=== PATIENT | male | born 1955 | race Caucasian/White ===

== ENCOUNTER → 2019-07-18 10:17 | Outpatient (CLI) | payer OTHER, SELFPAY ==
--- NOTE | ~2019-07-18 | MR_ITS ---
EXAMINATION: MR knee RT wo con DATE: 07/18/2019 11:07 INDICATION: Right knee pain. TECHNIQUE: Magnetic resonance imaging (MRI) of the right knee was performed without intravenous contr ast. Sequences included axial PD-weighted FS FSE, coronal PD-weighted FSE and PD-weighted FS FSE, sag ittal PD-weighted FSE, and sagittal T2-weighted FS FSE. COMPARISON: Right knee radiographs 05/17/2018 FINDINGS: Medial compartment: There is a complex tear of body and posterior horn of medial meniscus. There is shallow partial-thick ness cartilage loss of tibial condyle. There is partial-thickness cartilage loss of femoral condyle, deep at the central and medial articular surface with mild subchondral edema-like marrow signal inten sity. Marginal osteophytes are noted. Lateral compartment: Lateral meniscus is normal. There is cartilage surface irregularity of tibial condyle. There is shall ow partial-thickness cartilage loss of femoral condyle, worst at the central articular surface. Amy nal osteophytes are noted. Patellofemoral compartment: There is deep partial thickness cartilage loss of patellar medial facet and median ridge and shallow partial-thickness cartilage loss of patellar lateral facet with mild subchondral edema-like marrow si gnal intensity. There is shallow partial-thickness cartilage loss of central trochlea and deep partia l thickness cartilage loss of medial trochlea. Osteophytes are noted. Ligaments and tendons: Anterior and posterior cruciate ligaments are normal. There are changes of prior sprains of medial co llateral ligament and fibular collateral ligament characterized by increased signal intensity proxima lly. Edema around medial collateral ligament may be from an acute low-grade sprain or from the medial meniscal tear. There is severe patellar tendinopathy laterally. Fluid: There is a small knee joint effusion. There is mild prepatellar and superficial infrapatellar bursiti s. IMPRESSION: 1. Moderate chondrosis of medial and patellofemoral compartments and mild chondrosis of lateral katya rtment. 2. Tear of medial meniscus. 3. Edema around medial collateral ligament, which may be from an acute low-grade sprain or from the a djacent medial meniscal tear. 4. Small knee joint effusion. 5. Severe patellar tendinopathy. Reviewed, dictated and finalized at location A. IMPRESSION: 1. Moderate chondrosis of medial and patellofemoral compartments and mild chond rosis of lateral compartment. 2. Tear of medial meniscus. 3. Edema around medial collateral ligament, which may be from an acute low-grad e sprain or from the adjacent medial meniscal tear. 4. Small knee joint effusion. 5. Severe patellar tendinopathy.
== END ==
PROVIDERS: PCP Internal Medicine; Visit Provider Internal Medicine
DX: M25.561 Pain in right knee (principal); M22.2X1 Patellofemoral disorders, right knee; S83.241A Other tear of medial meniscus, current injury, right knee, initial encounter; M79.89 Other specified soft tissue disorders; M25.461 Effusion, right knee; M76.51 Patellar tendinitis, right knee
CPT/HCPCS: 73721

== ENCOUNTER 2019-09-28 11:29 | Outpatient (CLI) | payer OTHER, SELFPAY ==
--- NOTE | 2019-09-28 11:32 | ECG_ITS ---
Measurements Intervals [place] Rate: 73 P: 32 TN: 188 QRS: 7 QRSD: 95 T: 18 QT: 381 QTc: 421 Interpretive Statements SINUS RHYTHM DELAYED PRECORDIAL R/S TRANSITION VOLTAGE CRITERIA FOR LVH BORDERLINE ECG Electronically Signed On 09-28-2019 12:46:46 CDT by Marco A Husain D.O.
[2019-09-28 12:12] LABS: Blood Urea Nitrogen 16 mg/dL (9-20); Calcium 9.2 mg/dL (8.4-10.2); Carbon Dioxide 28 mmol/L (22-30); Chloride 104 mmol/L (98-107); Estimated Glomerular Filt Rate > 60; Glucose 120 mg/dL (75-110); Sodium 138 mmol/L (137-145)
== END 2019-09-28 11:30 | disposition home or self-care (01) ==
LOC: ANHSURGERY 11:32
PROVIDERS: Anesthesiology; PCP Internal Medicine; Visit Provider Orthopaedic Surgery
DX: Z01.818 Encounter for other preprocedural examination (principal); Z51.81 Encounter for therapeutic drug level monitoring; I10 Essential (primary) hypertension
CPT/HCPCS: 36415; 80048; 93005

== ENCOUNTER 2019-10-03 00:10 | Outpatient (CLI) | payer OTHER, SELFPAY ==
[2019-10-03 18:54] LABS: SARS-CoV-2 RNA PCR Negative
== END 2019-10-03 00:11 | disposition home or self-care (01) ==
LOC: ANHCOVIDDT 00:10
PROVIDERS: PCP Internal Medicine; Visit Provider Orthopaedic Surgery
DX: Z01.818 Encounter for other preprocedural examination (principal); Z11.59 Encounter for screening for other viral diseases
CPT/HCPCS: 87635; C9803; U0003

== ENCOUNTER 2019-10-05 02:26 | Day surgery (SDC) | payer OTHER, SELFPAY ==
[2019-09-26 15:02] VITALS: BMI 36.0
--- NOTE | 2019-10-04 14:14 | P.PNAN_ITS ---
Anes - Initial Pre Proc Eval Procedure: Operation Date: 10/05/19 09:00 Proposed Procedures p Right Knee Arthroscopy, Proceed As Indicated - Toni Kidd MD Date/Time: 10/04/19 14:14 Surgeon: Toni Kidd MD Pre Op Diagnosis: Right Medial Meniscus Tear Right Knee Patient Data Age: 63 Gender: M Height: 1.7 m Weight: 104.33 kg Allergies Allergy/AdvReac Type Severity Reaction Status Date / Time No Known Allergies Allergy Verified 10/05/19 08:06 Home Medications Medication Instructions Recorded Confirmed Type chlorhexidine gluconate 4 % 1 applic TOPICAL ONCE #237 ml 09/26/19 09/26/19 Rx topical liquid hydrochlorothiazide 25 mg PO DAILY 09/26/19 10/05/19 History lisinopril 10 mg PO DAILY 09/26/19 10/05/19 History metoprolol succinate 25 mg PO DAILY 09/26/19 10/05/19 History potassium chloride 20 meq PO DAILY 09/26/19 10/05/19 History rosuvastatin 10 mg PO DAILY 09/26/19 10/05/19 History ECG: Date of Service: 09/28/19 Procedure(s): CA 12 lead EKG Accession Number(s): [id number] cc: ~ Measurements Intervals [place] Rate: 73 P: 32 ME: 188 QRS: 7 QRSD: 95 T: 18 QT: 381 QTc: 421 Interpretive Statements SINUS RHYTHM DELAYED PRECORDIAL R/S TRANSITION VOLTAGE CRITERIA FOR LVH BORDERLINE ECG Electronically Signed On 09-28-2019 12:46:46 CDT by Marco A Husain D.O. Dictated By: Marco A Husain DO 09/28/19 1204 Patient hx anesthesia problems: none Family hx anesthesia problems: none PMFSH Past Medical History Medical History (Updated 10/05/19 @ 08:48 by Je Frost MD) Aneurysm of abdominal aorta ASCEDING and abdominal AORTIC ANEURYSM, monitored w/ annual CT Arthritis HTN (hypertension) Hypercholesterolemia Obesity JESSICA (obstructive sleep apnea) USES CPAP Social History Social History Smoking status: Former smoker Smoking end date: 04/06/03 Alcohol intake: current Anes - Eval Final PreProcedure Day of Procedure 10/04/19 14:14 Patient weight: obese Heart: regular rate and rhythm Lungs: clear to auscultation and normal air movement Airway: Mallampati scale class II Neurological: alert and oriented Last oral intake: >/= 8 hours ASA classification: III Emergent: no Anesthetic plan: proceed Anesthesia type and monitoring: general LMA Informed Consent: The patient's anesthetic plan and its attendant risks and benefits were discussed with the patient/family/POA. Questions were solicited and answers provided to the satisfaction of the patient/family/POA.
[2019-10-05] VITALS (8 sets, daily range): BP systolic 112–168; BP diastolic 62–94; PULSE 66–81; RESP 12–20; TEMP 36.5–36.7; O2SAT 94–98
--- NOTE | 2019-10-05 07:36 | WPDHPUPDATE1 ---
History and Physical Update Update Date/Time: 10/05/19 07:36 History and Physical has been reviewed, including an updated exam of the patient. There are NO changes in the patient's condition. Risks, benefits, and alternatives have been discussed and questions answered. Patient agrees to proceed with procedure.
[2019-10-05] MEDS: LACTATED RINGERS 1,000 ML 30 ML IV CONT (08:00)
[2019-10-05] MEDS: CELECOXIB 200 MG CAPSULE PO (08:00)
[2019-10-05] MEDS: ceFAZolin 2 GM/D5W 50 ML 2 GM/50 ML BAG IVPB (09:03)
--- NOTE | 2019-10-05 11:12 | PM.OP ---
Procedure Note - Brief Procedure Note - Brief Date of procedure: 10/05/19 Pre-op diagnosis: Right Medial Meniscus Tear Right Knee Post-op diagnosis: same Procedure performed: RIGHT KNEE SCOPE Anesthesia: GLMA Surgeon: Toni Kidd MD Estimated blood loss (mL): 10 Complications: No immediate complications Condition: stable Disposition: PACU
--- NOTE | 2019-10-05 13:03 | OP_ITS ---
DATE OF PROCEDURE: 10/05/2019 PREOPERATIVE DIAGNOSIS: Right knee medial meniscus tear. POSTOPERATIVE DIAGNOSIS: Right knee medial meniscus tear with synovitis and chondromalacia. PROCEDURE PERFORMED: Right knee arthroscopy with partial medial meniscectomy and major synovectomy. ANESTHESIA: General. COMPLICATIONS: None. INDICATIONS: This is a 63-year-old gentleman, who came in the office complaining of right knee pain and effusion. He was diagnosed with a medial meniscus tear and was complex in nature. He was also diagnosed with some mild arthritis. He was indicated for a right knee arthroscopy. DESCRIPTION OF PROCEDURE: The patient was taken to the operating room in stable condition and placed in the supine position. General anesthesia was induced and then the right lower extremity was prepped and draped sterilely from the toes to the thigh. Superomedial portal was used for an outflow cannula. Inferolateral portal was used for an inflow cannula. The camera was introduced. There was grade 3 chondromalacia of the patella and grade 2 chondromalacia to the trochlea. There was large amounts of synovitis in the superior medial pouch region and also in the Hoffa's fat pad region. The medial compartment then was entered. There was a large complex tear of the medial meniscus. A medial portal was established. Biter and shaver were introduced at different times and the meniscus tear was resected down to a smooth base. Also, the medial femoral condyle and the medial plateau underwent limited chondroplasty. Once that was performed, then the ACL was identified and it was intact. Lateral compartment was intact. There was an area of approximately about 3 cm and had a chondral defect that underwent chondroplasty. Until there was a much smoother area, there was no tear to the lateral meniscus. Next, the patellofemoral joint underwent chondroplasty. The Hoffa synovium was resected and the medial compartment synovium also was resected. The lateral compartment synovitis was resected due to impingement on the lateral joint space. The knee joint was irrigated thoroughly and then the instruments were removed and then the wounds were approximated with 4-0 nylon suture. Sterile dressing applied. The patient was extubated. Marina I [place]: [facility]
== END 2019-10-05 13:09 | disposition home or self-care (01) ==
PROVIDERS: PCP Internal Medicine; Visit Provider Orthopaedic Surgery
PROC: (CPT 29870; principal; 2019-10-05 09:00)
DX: M23.331 Other meniscus derangements, other medial meniscus, right knee (principal); M94.261 Chondromalacia, right knee; M65.861 Other synovitis and tenosynovitis, right lower leg; I10 Essential (primary) hypertension; E78.00 Pure hypercholesterolemia, unspecified; G47.33 Obstructive sleep apnea (adult) (pediatric); I71.4 Abdominal aortic aneurysm, without rupture; E66.9 Obesity, unspecified; Z68.36 Body mass index [BMI] 36.0-36.9, adult; Z87.891 Personal history of nicotine dependence
CPT/HCPCS: 29881; 29876; A9270; J0690; J2250; J2405; J2704; J3010; J7120

== ENCOUNTER 2022-02-10 10:30 | Outpatient (RCR) | payer MEDICARE, SELFPAY ==
[2022-01-24 08:58] VITALS: BP_SYST 120
--- NOTE | 2022-01-24 12:56 | PTOPEVAL1 ---
Assessment and note entered by Dania Rosado, PT Evaluation Information Assessment Status Evaluation Diagnosis right shoulder pain Onset 10/2021 Subjective Information Pt reports was moving a water heater and felt a pop. It doesn't hurt much but doesn't have the mobility he had prior to this instance. Can't lift like he did prior Reported Pain Level Pain Score Mild Pain: Gigi Spann Additional Pain Score Comments Reports shoulder just stops when trying to lift Assessment PT Clinical Summary Pt presents with right shoulder pain and disuse after probable injury in 10/2021 while moving water heater. Pt reports minimal discomfort however notes significant loss of range and strength in right shoulder. Evaluation shows decreased Active and Passive range of motion with muscular end- feels. Also demos decreased strength globally in shoulder w/ positive special testing suggestive of partial rotator cuff tear likely supraspinatus and possibly bicep involvement without labral involvement. Scapular mobility is also decreased effecting scapulohumeral rhythm. Thus pt will greatly benefit from physical therapy in order to address above deficits and allow improved high level activity such as shoulder use in rec center. Plan of Care Interventions Electrical Stimulation,Hot Pack/Cold Pack,Manual Therapy,Neuro Re-education,Patient/Caregiver Educati,Therapeutic Activities,Therapeutic Exercise,Ultrasound PT Services Indicated Yes Treatment Frequency and 2x weekly x 4 weeks Duration These treatments will address the objective and functional deficits as defined above. The patient will be advanced safely and appropriately in order for the patient to progress towards his/her prior level of function. Additional exercises will be introduced and as well as a comprehensive home exercise program upon discharge, if needed, ?to ensure carryover of functional gains achieved in the clinic. This treatment plan has been reviewed and agreement upon by the patient.
--- NOTE | 2022-02-10 11:14 | PTOPDC ---
Assessment and note entered by Dania Rosado, PT Evaluation Information Assessment Status Discharge Diagnosis right shoulder pain Onset 10/2021 Subjective Information Pt reports was unable to do anything at the Rec center, but with knowledge gained during therapy feels confident in returning to lifting weights. Reported Pain Level Pain Score 0: Self Report Assessment PT Clinical Summary Pt glenna's significantly improved Active ROM and Passive ROM of right shoulder, and reports feeling confident in returning to working out at Rec. center. Reports feeling 100% back to normal. Was afraid of going back to working out but now feels that he can without injury. Pt has met his functional and pain goals, still glenna's mild deficit in active abduction however this is not limiting his ability or causing impingement symptoms. Thus pt is being discharged from therapy and has been educated on return to Rec. Center.
== END 2022-02-14 08:53 | disposition home or self-care (01) ==
LOC: ANHHIPT 10:30
PROVIDERS: PCP Family Medicine; Visit Provider Family Medicine
DX: M25.511 Pain in right shoulder (principal)
CPT/HCPCS: 97110; 97140; 97161

== ENCOUNTER 2024-12-02 01:22 | Day surgery (SDC) | payer MEDICARE, SELFPAY ==
[2024-11-24 15:03] VITALS: BMI 35.3
--- NOTE | 2024-11-24 15:23 | PC.NURSE ---
Spoke with patient regarding medication _plavix_. Patient verbalizes understanding that the last dose is to be taken on 11/27/2024 and the Endoscopist will instruct them when to restart after the procedure.
--- OUTSIDE RECORDS SUMMARY | 2024-12-02 01:27 | XMS_ITS | Clinical Summary ---
Author Organization [facility] Address [facility] [place] [address] Care Team Providers Care Specialty Trimmer Name Role Phone Kashif Bruce MD Primary Care Provider [phone] Allergies No known active allergies Medications traMADol 50 MG tablet Take 50 mg by mouth 3 (three) times daily as needed. 1 Active rosuvastatin 10 MG tablet Take 1 tablet by mouth daily. 5 Active potassium chloride CR (KLOR-CON M20) 20 MEQ tablet Take 1 tablet by mouth. 6 Active metoprolol succinate ER 25 MG 24 hr tablet Take 1 tablet by mouth daily. 6 Active Na sulfate-K sulfate-Mg sulfate (SUPREP BOWEL PREP KIT) 17.5-3.13-1.6 GM/177ML SolutionIndicat ions:Screening for colon cancer,Personal history of colonic polyps Take 177 mLs by mouth every 12 (twelve) hours. Take as directed by instruction sheet. 354 mL 1 Active hydroCHLOROthia zide 25 MG tablet Take 25 mg by mouth every morning. Active lisinopril 10 MG tablet Take 10 mg by mouth daily. Active Active Problems Problem Noted Date Diagnosed Date Screening for colon cancer 01/09/2021 Overview (01/09/2021): Added automatically from request for surgery [id number] Family history of colon cancer in mother 021 Overview (01/09/2021): Added automatically from request for surgery [id number] Anal fissure 06/17/2016 Sleep apnea 04/03/2016 Ascending aortic aneurysm 03/19/2016 Aortic aneurysm 11/28/2014 History of colon polyps 09/25/2014 BMI 36.0-36.9,adult 03/23/2014 Generalized osteoarthritis of multiple sites Dysfunction of both eustachian tubes 12/11/2013 Hyperlipidemia 04/13/2013 Immunizations Immunization Administration Dates Next Due Td (Tenivac) preservative free 09/26/2013 Tdap (Generic) 03/18/2016 Family History Medical History Relation Comments Colon Cancer Mother Relation Status Comments Mother Social History Tobacco Use Types Packs/Day Years Used Date Smoking Tobacco: Former Smokeless Tobacco: Never Alcohol Use Standard Drinks/Week Comments Yes 0 (1 standard drink = 0.6 oz pur e alcohol) occ Sex and Gender Information Value Date Recorded Sex Assigned at Not on file Legal Sex Male 6:01 PM CDT Gender Identity Not on file Sexual Orientation Not on file Last Filed Vital Signs Vital Sign Reading Time Taken Comments Blood Pressure 128/80 08/15/2021 4:30 AM CDT Pulse 60 08/15/2021 4:30 AM CDT Temperature 36.6 C (97.9 F) 08/15/2021 12:30 AM CDT Respiratory Rate 13 08/15/2021 4:30 AM CDT Oxygen Saturation 90% 08/15/2021 4:30 AM CDT Inhaled Oxygen Concentration - - Weight 102.1 kg (225 lb) 08/15/2021 12:30 AM CDT Height 170.2 cm (5' 7) 08/15/2021 12:30 AM CDT Body Mass Index 35.24 08/15/2021 12:30 AM CDT Plan of Treatment Health Maintenance Due Date Last Done Comments Hepatitis C 11/29/1973 Pneumococcal Vaccine: 50+ Years (1 of 1 - PCV) 11/29/2005 Zoster Vaccines (1 of 2) 11/29/2005 Annual Medicare Wellness Visit 11/29/2020 COVID-19 Vaccine (2 - 2023-2 5 season) 2023 06/12/2020 DTaP, Tdap and Td Vaccines ( 2 - Td or Tdap) 03/18/2026 03/18/2016, 09/26/2013 RSV Immunization or 60+ Years (1 - 1-dose 75+ series) 11/29/2030 Colorectal Cancer Screening Colonoscopy (10 Years) 01/23/2031 01/23/2021, Meningococcal B Vaccine Aged Out No l onger eligible based on patient's age to complete this topic Meningococcal Vaccine Aged Out No kathrin jessika eligible based on patient's age to complete this topic RSV Immunizations Under 20 Months Aged Out No longer eligible b ased on patient's age to complete this topic Medical Devices Implanted Type Area Speech Language Pathologist Travel Device Identifier Shelf Expiration Date Model / Serial / Lot Iol L[employer] [id number] - [id number] Implanted:Qty: 1 on 07/01/2021 by Kris Villanueva MD at [facility] Lens Left: Eye [employer] 01/01/2024 [id number] / [id number] / Procedures Procedure Name Priority Date/Time Associated Diagnosis Comments COLONOSCOPY 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 3 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 or Most Recently Relevant to Health Maintenance Results * Colonoscopy ( 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
[2024-12-02 10:13] VITALS: BP 122/76; PULSE 66; RESP 16; TEMP 36.1; O2SAT 100; BMI 34.4
--- NOTE | 2024-12-02 10:14 | SUR.PREOP ---
Patient last took clopidogrel yesterday, 12/01/24. Doctor Chase notified and will proceed with procedure.
[2024-12-02] MEDS: LACTATED RINGERS 1,000 ML 150 ML IV CONT (10:16)
--- NOTE | 2024-12-02 10:22 | P.PNAN_ITS ---
Anes - Initial Pre Proc Eval Procedure: Operation Date: 12/02/24 12:30 Proposed Procedures p Colonoscopy - Cm Osullivan MD Date/Time: 12/02/24 10:22 Surgeon: Cm Osullivan MD Pre Op Diagnosis: Incomplete defecation Patient Data Age: 69 Gender: M Height: 1.7 m Weight: 99.6 kg Last Vital Signs Temp 36.1 C L 12/02/24 10:13 Pulse 66 12/02/24 10:13 Resp 16 12/02/24 10:13 BP 122/76 12/02/24 10:13 Pulse Ox 100 12/02/24 10:13 O2 Del Method Room Air 12/02/24 10:13 Allergies Allergy/AdvReac Type Severity Reaction Status Date / Time No Known Allergies Allergy Verified 12/02/24 10:12 Home Medications ?Medication ?Instructions ?Recorded ?Confirmed ?Type aspirin 81 mg tablet,delayed 81 mg PO DAILY 01/17/22 0 12/02/24 History release (Adult Aspirin Regimen) hydrochlorothiazide 25 mg tablet See Rx Instructions . Route 08/24/24 12/02/24 Rx .COMPLEX #90 tabs lisinopril 10 mg tablet See Rx Instructions .Route 0 08/24/24 12/02/24 Rx .COMPLEX #90 tabs metoprolol succinate 25 mg See Rx Instructions .Route 08/24/24 12/02/24 Rx tablet,extended release 24 hr .COMPLEX #90 tabs potassium chloride 20 mEq See Rx Instructions .Route 0 08/24/24 12/02/24 Rx tablet,extended release(part/cryst) .COMPLEX #90 tabs rosuvastatin 10 mg tablet 10 mg PO DAILY #90 tabs /2 04/3012/02/24 Rx clopidogrel 75 mg tablet 75 mg PO DAILY 11/24/2411/05 History Patient hx anesthesia problems: none Family hx anesthesia problems: none Results Review: All pre-operative results and documents have been reviewed as part of the pre- operative evaluation. [facility] Past Medical History Medical History URI (upper respiratory infection) Ascending aortic aneurysm Rectal fistula Biceps tendon rupture Perirectal abscess Arthritis JESSICA (obstructive sleep apnea) USES CPAP HTN (hypertension) Hypercholesterolemia Aneurysm of abdominal aorta ASCEDING and abdominal AORTIC ANEURYSM, monitored w/ annual CT Surgical History Surgical History History of hand surgery left 3rd digit knuckle replacement Hx of eye surgery S/P left knee arthroscopy Family History Family History Mother Carcinoma of colon Father Family history of cardiovascular disease Other Family history of malignant neoplasm Social History Social History Smoking status: Never smoker Smoking end date: 04/06/03 Alcohol intake: current Substance use: never Substance use type: does not use Lack of Transportation: No Lack of Food: Never True Current Housing: I Have Housing Concerned About Future Housing: No Difficulty Paying Gas/Electric Bills: No Difficulty Paying for Meds: No Currently Unemployed: No Education: Don't Know Difficulty w/ Childcare or Family Care: No Living arrangements: with family Occupation/Education: retired Gender identity (if verbalized by the patient): Male Anes - Eval Final PreProcedure Day of Procedure 12/02/24 10:22 Patient weight: obese Heart: regular rate and rhythm Lungs: clear to auscultation Airway: Mallampati scale class III Neurological: alert and oriented Last oral intake: >/= 8 hours ASA classification: III Emergent: no Anesthetic plan: proceed Anesthesia type and monitoring: general GIVS and standard monitoring Results Review: All pre-operative results and documents have been reviewed as part of the pre- operative evaluation. Informed Consent: The patient's anesthetic plan and its attendant risks and benefits were discussed with the patient/family/POA. Questions were solicited and answers provided to the satisfaction of the patient/family/POA.
--- NOTE | 2024-12-02 10:23 | PM.HPGS ---
History of Present Illness History of Present Illness Consent: Risks, benefits, and alternatives have been discussed and questions answered. Patient agrees to proceed with procedure. Chief complaint: Incomplete defecation Narrative: Bj Abbott is a 69 year old male here for colonoscopy, incomplete evacuation of feces Review of Systems Review of Systems: All systems reviewed & are unremarkable except as noted in HPI and below PMFSH Past Medical History Medical History (Updated 12/02/24 @ 10:24 by Cm Osullivan MD) Incomplete passage of stool URI (upper respiratory infection) Ascending aortic aneurysm Rectal fistula Biceps tendon rupture Perirectal abscess Arthritis JESSICA (obstructive sleep apnea) USES CPAP HTN (hypertension) Hypercholesterolemia Aneurysm of abdominal aorta ASCEDING and abdominal AORTIC ANEURYSM, monitored w/ annual CT Surgical History Surgical History History of hand surgery left 3rd digit knuckle replacement Hx of eye surgery S/P left knee arthroscopy Family History Family History Mother Carcinoma of colon Father Family history of cardiovascular disease Other Family history of malignant neoplasm Social History Social History Smoking status: Never smoker Smoking end date: 04/06/03 Alcohol intake: current Substance use: never Substance use type: does not use Lack of Transportation: No Lack of Food: Never True Current Housing: I Have Housing Concerned About Future Housing: No Difficulty Paying Gas/Electric Bills: No Difficulty Paying for Meds: No Currently Unemployed: No Education: Don't Know Difficulty w/ Childcare or Family Care: No Living arrangements: with family Occupation/Education: retired Gender identity (if verbalized by the patient): Male Meds Home Medications and Allergies Home Medications ?Medication ?Instructions ?Recorded ?Confirmed ?Type aspirin 81 mg tablet,delayed 81 mg PO DAILY 01/17/22 12/02/24 History release (Adult Aspirin Regimen) hydrochlorothiazide 25 mg tablet See Rx Instructions .Route 08/24/24 12/02/24 Rx .COMPLEX #90 tabs lisinopril 10 mg tablet See Rx Instructions .Route 08/24/24 12/02/24 Rx .COMPLEX #90 tabs metoprolol succinate 25 mg See Rx Instructions .Route 08/24/24 12/02/24 Rx tablet,extended release 24 hr .COMPLEX #90 tabs potassium chloride 20 mEq See Rx Instructions .Route 08/24/24 12/02/24 Rx tablet,extended release(part/cryst) .COMPLEX #90 tabs rosuvastatin 10 mg tablet 10 mg PO DAILY #90 tabs 08/24/24 12/02/24 Rx clopidogrel 75 mg tablet 75 mg PO DAILY 11/24/24 12/02/24 History Allergies Allergy/AdvReac Type Severity Reaction Status Date / Time No Known Allergies Allergy Verified 12/02/24 10:12 Vital Signs Vital Signs - 24 hr 12/02/24 10:13 Temperature 97 F L Pulse Rate 66 Respiratory Rate 16 Blood Pressure 122/76 Pulse Oximetry 100 Oxygen Delivery Room Air Exam Const: General: comfortable and no acute distress HENMT: Face/Nose/Sinus: Normal nares present Eyes: General: appearance normal, both eyes and all related structures Neck: Neck: no JVD Resp: Auscultation: clear to auscultation bilaterally Cardio: Rate: regular rate Rhythm: regular rhythm GI: Inspection: non-distended GI Palp: Yes Soft to palpation Skin: General skin exam: normal color Neuro: Speech: normal speech Extrem: General: normal to inspection Psych: Mental Status: mental status grossly normal Assessment and Plan Assessment and plan (1) Incomplete passage of stool: Code(s): R15.0 - Incomplete defecation Status: Acute Assessment and Plan: colonoscopy
--- NOTE | 2024-12-02 10:32 | SUR.OPER ---
1025: DR ROSARIO NOTIFIED PT TOOK PLAVIX UP UNTIL YESTERDAY, NO NEW ORDERS, OK TO PROCEED WITH PROCEDURE.
[2024-12-02 10:37] VITALS: BP 106/63; PULSE 69; RESP 17; O2SAT 95
[2024-12-02 10:47] VITALS: BP 105/64; PULSE 62; RESP 26; O2SAT 100
[2024-12-02 10:57] VITALS: BP 108/71; PULSE 70; RESP 15; O2SAT 100
== END 2024-12-02 11:06 | disposition home or self-care (01) ==
PROVIDERS: PCP Nurse Practitioner Family; Referring Provider Nurse Practitioner Family; Visit Provider Internal Medicine Gastroenterology
PROC: 0DJD8ZZ Inspection of Lower Intestinal Tract, Via Natural or Artificial Opening Endoscopic (ICD-10-PCS; CPT 45378; principal; 2024-12-02 12:30)
DX: R15.0 Incomplete defecation (principal); K64.8 Other hemorrhoids; K57.30 Diverticulosis of large intestine without perforation or abscess without bleeding; I10 Essential (primary) hypertension; E78.00 Pure hypercholesterolemia, unspecified; G47.33 Obstructive sleep apnea (adult) (pediatric); M19.90 Unspecified osteoarthritis, unspecified site; E66.9 Obesity, unspecified; Z68.34 Body mass index [BMI] 34.0-34.9, adult; Z79.82 Long term (current) use of aspirin; Z79.02 Long term (current) use of antithrombotics/antiplatelets; Z99.89 Dependence on other enabling machines and devices; Z98.890 Other specified postprocedural states; Z86.79 Personal history of other diseases of the circulatory system; Z87.19 Personal history of other diseases of the digestive system; Z80.0 Family history of malignant neoplasm of digestive organs; Z82.49 Family history of ischemic heart disease and other diseases of the circulatory system
CPT/HCPCS: 45378; J2704; J7120